=== PATIENT | male | born 1980 | race Hispanic/Latino ===

== ENCOUNTER 2016-12-20 10:17 | Emergency (ER) | payer OTHER ==
--- NOTE | 2016-12-20 10:51 | C.PDOC ---
History Of Present Illness 36 y/o male brought to ED by EMS for detox. Mother called EMS for patient to have detox . . Patient states he got out of rehab on Sunday. He was there for 1 month. Patient states he does not want detox. Patient returned to work and states he was overwhelmed with work and decided to take percocets. Patient denies heroin use or any physical complaints at this time. Time Seen by Provider: 12/20/16 10:33 Chief Complaint (Nursing): Substance Abuse History Per: Patient History/Exam Limitations: no limitations Onset/Duration Of Symptoms: Days Current Symptoms Are (Timing): Still Present Suicide/Self Injury Attempted (Context): None Past Medical History Reviewed: Historical Data, Nursing Documentation, Vital Signs Vital Signs: Last Vital Signs Temp 98.2 F 12/20/16 10:23 Pulse 90 12/20/16 10:23 Resp 96 H 12/20/16 10:23 BP 127/84 12/20/16 10:23 Pulse Ox 100 12/20/16 10:55 Surgical History: No Surg Hx Family History: States: No Known Family Hx - Social History Hx Alcohol Use: Yes (denies) Hx Substance Use: Yes (cocaine, methadone) - Immunization History Hx Tetanus Toxoid Vaccination: No Hx Influenza Vaccination: No Hx Pneumococcal Vaccination: No Review Of Systems Constitutional: Negative for: Fever, Chills Cardiovascular: Negative for: Chest Pain Respiratory: Negative for: Shortness of Breath Gastrointestinal: Negative for: Nausea, Vomiting Skin: Negative for: Rash Psych: Negative for: Suicidal ideation Physical Exam - Physical Exam Appears: Non-toxic, No Acute Distress Skin: Warm, Dry, No Rash Head: Atraumatic, Normacephalic Eye(s): bilateral: Other (pin point) Oral Mucosa: Moist Neck: Normal ROM, Supple Chest: Symmetrical Cardiovascular: Rhythm Regular Respiratory: Normal Breath Sounds, No Rales, No Rhonchi, No Wheezing Gastrointestinal/Abdominal: Soft, No Tenderness, No Guarding, No Rebound Neurological/Psych: Oriented x3, Normal Speech Gait: Other (occasionally nodding off) ED Course And Treatment O2 Sat by Pulse Oximetry: 100 (RA) Pulse Ox Interpretation: Normal Medical Decision Making Medical Decision Making: Mother in the ED. Patient positive for heroine and cocaine. Will d/c in care of mom. Disposition - Disposition Disposition: HOME/ ROUTINE Disposition Time: 13:29 Condition: STABLE Instructions: Polysubstance Abuse (ED) Forms: [facility] (Pashto), General Discharge Instructions - Clinical Impression Clinical Impression: Drug abuse - Scribe Statement The provider has reviewed the documentation as recorded by the Yoditibjose francisco Santamaria All medical record entries made by the Yoditibe were at my direction and personally dictated by me. I have reviewed the chart and agree that the record accurately reflects my personal performance of the history, physical exam, medical decision making, and the department course for this patient. I have also personally directed, reviewed, and agree with the discharge instructions and disposition.
[2016-12-20 13:40] VITALS: BP 148/86; PULSE 118; RESP 20; TEMP 98.1; O2SAT 96
== END 2016-12-20 13:38 | disposition home or self-care (01) ==
LOC: C.ER 10:17
DX: F19.10 Other psychoactive substance abuse, uncomplicated (principal)